=== PATIENT | female | born 1995 | race Two or more races ===

== ENCOUNTER 2024-04-04 10:40 | Emergency (ER) | payer OTHER ==
[~2024-04-04] VITALS: Ht 152.4 cm; Wt 51.3 kg
[2024-04-04 11:40] VITALS: BP 102/67; O2SAT 100
[2024-04-04] MEDS ORDERED: KETOROLAC TROMETHAMINE 30 MG VIAL IM ONE (12:30)
[2024-04-04] MEDS ORDERED: KETOROLAC TROMETHAMINE 30 MG VIAL ONE (13:19)
== END 2024-04-04 13:24 | disposition home or self-care (01) ==
LOC: ER 10:42
DX: M54.9 Dorsalgia, unspecified (principal); M41.86 Other forms of scoliosis, lumbar region; M62.838 Other muscle spasm